=== PATIENT | female | born 1940 | race Caucasian/White ===

== ENCOUNTER 2021-03-01 15:44 | Emergency (ER) | payer MEDICARE, BC ==
--- NOTE | 2021-03-01 16:39 | EDM.PDOC ---
ED HPI GENERAL MEDICAL PROBLEM - General Chief Complaint: ENT Problem Stated Complaint: NOSE BLEED Time Seen by Provider: 03/01/21 15:50 Source of Information: Reports: Patient History Limitations: Reports: No Limitations - History of Present Illness INITIAL COMMENTS - FREE TEXT/NARRATIVE: The patient presents with a left nostril nose bleed. This started just prior to arrival. She denies any trauma. She had just been playing cards and then getting a bite to eat when it started. She has not been able to stop it. She may have had a nose bleed a couple years ago but it has never really been an issue. She is not on any blood thinners. Onset: Sudden Duration: Hour(s): Severity: Moderate Improves with: Reports: None Worsens with: Reports: None Associated Symptoms: Reports: No Other Symptoms - Related Data Allergies Allergy/AdvReac Type Severity Reaction Status Date / Time No Known Allergies Allergy Verified 03/01/21 15:54 Home Meds: Home Meds . [No Known Home Meds] 03/01/21 [History] Past Medical History HEENT History: Reports: Cataract, Epistaxis - Past Surgical History HEENT Surgical History: Reports: Eye Surgery Female Surgical History: Reports: Hysterectomy, Other (See Below) Other Female Surgeries/Procedures: Bladder Lift Musculoskeletal Surgical History: Reports: Carpal Tunnel, Hip Replacement, Other (See Below) Other Musculoskeletal Surgeries/Procedures:: Bilateral Hip Replacement Social & Family History - Tobacco Use Tobacco Use Status *Q: Never Tobacco User - Caffeine Use Caffeine Use: Reports: Coffee - Recreational Drug Use Recreational Drug Use: No ED ROS ENT - Review of Systems Review Of Systems: See Below Constitutional: Reports: No Symptoms HEENT: Reports: Nosebleed Respiratory: Reports: No Symptoms Cardiovascular: Reports: No Symptoms Endocrine: Reports: No Symptoms GI/Abdominal: Reports: No Symptoms : Reports: No Symptoms ED EXAM, ENT - Physical Exam Exam: See Below Exam Limited By: No Limitations General Appearance: Alert, No Apparent Distress Ears: Normal External Exam Nose: Active Bleeding (left nostril anterior septum) Mouth/Throat: Normal Inspection Head: Atraumatic, Normocephalic Neck: Normal Inspection Respiratory/Chest: No Respiratory Distress ED ENT PROCEDURES - Epistaxis Procedure Indication: Epistaxis Recent anticoagulants/antiplatlets: No Uncontrolled HTN: No Recent septal/nasal surgery: No Site of bleeding: Left Nare, Anterior Clearing of clots: Patient Blew Nose Chemical cautery: Silver Nitrate Topical Complications: No Course - Vital Signs Last Recorded V/S: Last Vital Signs Temp 96.9 F 03/01/21 15:51 Pulse 87 03/01/21 15:51 Resp 16 03/01/21 15:51 BP 173/75 H 03/01/21 15:51 Pulse Ox 97 03/01/21 15:51 - Re-Assessments/Exams Free Text/Narrative Re-Assessment/Exam: 03/01/21 16:39 I was able to see the source of the bleeding and used silver nitrate to stop it. 03/01/21 16:57 She is doing good. No more bleeding. I will discharge her home. Departure - Departure Time of Disposition: 17:00 Disposition: Home, Self-Care 01 Condition: Good Clinical Impression: Epistaxis - Discharge Information *PRESCRIPTION DRUG MONITORING PROGRAM REVIEWED*: Not Applicable *COPY OF PRESCRIPTION DRUG MONITORING REPORT IN PATIENT LUL: Not Applicable Referrals: Ethan Campos MD [Primary Care Provider] - 1 Week Forms: ED Department Discharge Additional Instructions: Put antibiotic ointment or petroleum jelly in each nostril 2 times per day for 1 week. Please return if you get worse. Sepsis Event Note (ED) - Evaluation Sepsis Screening Result: No Definite Risk - Focused Exam Vital Signs: Vital Signs Temp Pulse Resp BP Pulse Ox 03/01/21 15:51 96.9 F 87 16 173/75 H 97
== END 2021-03-01 17:16 | disposition home or self-care (01) ==
LOC: JD.ED 15:44
DX: R04.0 Epistaxis (principal)
CPT/HCPCS: 30901; 99282; 99283-25